=== PATIENT | male | born 1965 | race Caucasian/White ===

== ENCOUNTER → 2019-03-01 | Outpatient (CLI) | payer BC ==
[~2019-03-01] MED LIST: DOCU-131 PO; HYDR-3240 PO; LEVO175T2 PO; LIOT5TAB11 PO; LISI40TA PO; OMNIPAQUE 350 MG/ML, 100ML BOTTLE ONE; testosterone IM
== END | disposition home or self-care (01) ==
LOC: CFH 11:46
DX: N40.0 Benign prostatic hyperplasia without lower urinary tract symptoms (principal)
CPT/HCPCS: 74177; Q9967